=== PATIENT | male | born 1960 | race Caucasian/White ===

== ENCOUNTER 2017-12-12 01:44 | Emergency (ER) | payer OTHER ==
[2017-12-12 02:28] LABS: Bilirubin Negative (Negative); Blood, Urine Negative (Negative); Clarity Clear (Clear); Glucose, Urine (Dipstick) Negative (Negative); Leukocyte Negative (Negative); Nitrite Negative (Negative); Protein, Urine (Dipstick) Negative (Neg-Trace); Specific Gravity, Urine 1.015 (1.005-1.030); Urobilinogen 0.2 mg/dL (0.2-1.0)
[2017-12-12 02:32] LABS: Troponin I Less than 0.010 ng/mL (< 0.028)
[2017-12-12 02:33] LABS: Band 1 % (5-11); Eosinophils 1 % (0-10); Hemoglobin 17.3 g/dL (14.0-18.0); Lymphocytes 29 % (21-51); MDiff Complete? YES; Mean Corpuscular HGB CONC 33.8 g/dL (32.0-36.0); Mean Corpuscular Hemoglobin 27.6 pg (27.0-31.0); Mean Corpuscular Volume 81.8 fL (78.0-98.0); Mean Platelet Volume 9.1 fL (7.4-10.4); Monocytes 1 % (0-10); Neutrophil 63 % (42-75); Platelet Count 284 thou/uL (130-400); RBC Distribution Width 12.3 % (11.5-14.5); Reactive Lymphocytes 5 % (0-10); Red Blood Cell (RBC) Count 6.27 mill/uL (4.70-6.10); White Blood Cell (WBC) Count 10.3 thou/uL (4.8-10.8)
[2017-12-12 02:48] LABS: ALT (SGPT) 24 U/L (8-55); AST (SGOT) 22 U/L (5-34); Albumin 4.3 g/dL (3.5-5.0); Alkaline Phosphatase 88 U/L (40-150); Anion Gap 14 mmol/L (10-20); BUN (Urea Nitrogen) 18 mg/dL (8.4-25.7); Bilirubin, Total 0.4 mg/dL (0.2-1.2); Calc. Creatinine Clearance 0 mL/min (70-130); Calcium 9.8 mg/dL (7.8-10.44); Carbon Dioxide 24 mmol/L (22-29); Chloride 107 mmol/L (98-107); Estimated GFR-MDRD 74; Globulin 3.4 g/dL (2.4-3.5); Glucose 117 mg/dL (70-105); Potassium 3.5 mmol/L (3.5-5.1); Protein, Total 7.7 g/dL (6.0-8.3); Sodium 141 mmol/L (136-145)
[2017-12-12 02:50] LABS: Magnesium 2.4 mg/dL (1.6-2.6)
[2017-12-12] MEDS ORDERED: Metoprolol Tartrate 5 MG/5 ML VIAL ONE (03:13)
--- NOTE | 2017-12-12 08:36 | RAD ---
CHEST TWO VIEWS: HISTORY: New onset palpitation. COMPARISON: None. FINDINGS: Slight elongation of the aorta. Normal cardiac silhouette. Pulmonary vessels and hilum are normal. Costophrenic angles are clear. No masses or consolidation. No pneumothorax or osseous abnormalitie s. IMPRESSION: No acute cardiopulmonary process. POS: [facility]
== END 2017-12-12 04:53 | disposition short-term general hospital (02) ==
LOC: SCSER 01:44
DX: I48.91 Unspecified atrial fibrillation (principal); I10 Essential (primary) hypertension; Z79.899 Other long term (current) drug therapy
CPT/HCPCS: 71046; 80053; 81003; 83735; 83880; 84443; 84484; 85025; 93005; 96361; 96374

== ENCOUNTER 2018-12-26 12:05 | Outpatient (CLI) | payer OTHER ==
--- NOTE | 2018-12-26 14:30 | CT ---
EXAM: Abdomen and pelvic CT scan with contrast: HISTORY: Left upper and lower abdominal pain, patient complains of left upper quadrant abdominal mass COMPARISON: None FINDINGS: The visualized lung bases are clear. Small hiatal hernia. Liver: Multiple low-attenuation foci within the right and left lobes the liver up to 1.9 cm which hav e relatively low attenuation coefficients but are nonspecific on this single phase study. Gallbladder:Small gallstone/stones without wall thickening or pericholecystic fat stranding. Pancreas:Unremarkable Spleen:Unremarkable. Adrenal glands:1.1 cm diameter fatty right adrenal mass probably a myolipoma. Kidneys:No renal calculus or acute obstruction. Multiple bilateral renal cysts including a minimally septated cyst of the right kidney up to 4.8 cm. Solid enhancing mass involving the lower pole of the left kidney, 3.3 x 3.4 x 4.4 cm in size evidence for primary renal malignancy. Visualized left renal vein is intact. Scattered colonic diverticulosis without acute diverticulitis. Minimal focal thickening of the sigmoid colon, nonspecific, possibly related to prior diverticulitis although a small neoplastic process is not excluded. No CT evidence for acute appendicitis. The urinary bladder is unremarkable. Reproductive system:Enlarged prostate gland. Bilateral fat-containing inguinal hernias. No abscess, adenopathy, or abnormal fluid collection within the abdomen or pelvis. IMPRESSION: Solid enhancing left lower pole renal mass evidence for malignancy. Lower attenuation nodular foci within the liver, nonspecific possibly cysts. Bilateral renal cysts. Cholelithiasis without acute cholecystitis. Other findings as above. CODE T
[2018-12-26] MEDS ORDERED: Iopamidol 370 76% 100 ML VIAL ONE (20:39)
[2018-12-26] MEDS ORDERED: Iopamidol 370 76% 50 ML VIAL FS ONE (20:39)
== END 2018-12-26 12:06 | disposition home or self-care (01) ==
LOC: CT 12:05
PROVIDERS: ATTEND Physician Assistant
DX: R19.02 Left upper quadrant abdominal swelling, mass and lump (principal); R19.04 Left lower quadrant abdominal swelling, mass and lump; N28.89 Other specified disorders of kidney and ureter; N28.1 Cyst of kidney, acquired; K80.20 Calculus of gallbladder without cholecystitis without obstruction; K40.90 Unilateral inguinal hernia, without obstruction or gangrene, not specified as recurrent; N40.0 Benign prostatic hyperplasia without lower urinary tract symptoms; K57.30 Diverticulosis of large intestine without perforation or abscess without bleeding
CPT/HCPCS: 74177; Q9967

== ENCOUNTER 2019-01-18 09:00 | Inpatient (IN) | payer OTHER ==
[2019-01-29] MEDS ORDERED: Midazolam HCl 2 mg/2 ml Vial ONE (07:01)
[2019-01-29] MEDS ORDERED: Fentanyl 100 MCG/2 ML VIAL ONE ×3 (07:01→09:59)
[2019-01-29] MEDS ORDERED: Acetaminophen 500 MG TAB PO PRN (07:11)
[2019-01-29] MEDS ORDERED: traMADol HCl 50 MG TAB PO PRN ×2 (07:15)
[2019-01-29] MEDS ORDERED: Bupivacaine 0.25% 10 ML VIAL EPIDURAL PRN ×2 (07:15→10:00)
[2019-01-29] MEDS ORDERED: diphenhydrAMINE 25 MG CAP PO PRN ×2 (07:15→10:00)
[2019-01-29] MEDS ORDERED: Promethazine HCl 25 MG SUPP PR PRN ×2 (07:15→10:00)
[2019-01-29] MEDS ORDERED: diphenhydrAMINE 50 MG/ML VIAL IVP PRN ×2 (07:15→10:00)
[2019-01-29] MEDS ORDERED: Promethazine HCl 25 MG/ML VIAL IM PRN ×3 (07:15→10:00)
[2019-01-29] MEDS ORDERED: Zolpidem Tartrate 5 MG TAB PO PRN ×2 (07:15→10:00)
[2019-01-29] MEDS ORDERED: diphenhydrAMINE 50 MG/ML VIAL IM PRN ×2 (07:15→10:00)
[2019-01-29] MEDS ORDERED: Naloxone HCl 0.4 mg/ml Vial IVP PRN ×3 (07:15→10:00)
[2019-01-29] MEDS ORDERED: Ondansetron PF 4 MG/2 ML Vial IVP PRN ×2 (07:15→10:00)
[2019-01-29] MEDS ORDERED: Naloxone HCl 0.4 mg/ml Vial IV PRN (07:15)
[2019-01-29] MEDS ORDERED: Hydrocerin (Eucerin) Cream 120 gm Jar TOP PRN (07:15)
[2019-01-29] MEDS ORDERED: HYDROcodone/Acetaminophen 5/325 mg Tablet PO PRN (07:15)
[2019-01-29] MEDS ORDERED: Bupivacaine 0.25% HCL 30 ML VIAL ONE (07:59)
[2019-01-29] MEDS ORDERED: Promethazine HCl 25 MG/ML VIAL SLOW IVP PRN (10:00)
[2019-01-29] MEDS ORDERED: Ondansetron HCl/PF 4 MG/2 ML Vial IVP PRN (10:00)
[2019-01-29] MEDS ORDERED: Fentanyl 5 mcg/Bupivacaine 0.075% Cassette 100 ML EPIDURAL SCH (10:00)
[2019-01-29] MEDS ORDERED: Communication Order-Pharmacy FS SCH ×2 (10:00)
[2019-01-29 11:20] LABS: Hemoglobin 13.6 g/dL (14.0-18.0)
[2019-01-29 11:53] LABS: Anion Gap 11 mmol/L (10-20); BUN (Urea Nitrogen) 19 mg/dL (8.4-25.7); Calc. Creatinine Clearance 120 mL/min (70-130); Carbon Dioxide 23 mmol/L (22-29); Chloride 106 mmol/L (98-107); Estimated GFR-MDRD 58; Glucose 141 mg/dL (70-105); Potassium 3.2 mmol/L (3.5-5.1); Sodium 137 mmol/L (136-145)
[2019-01-29] MEDS ORDERED: Rocuronium Bromide 10 MG/ML (10ML VIAL) ONE (12:09)
[2019-01-29] MEDS ORDERED: ePHEDrine/0.9% NaCl/PF SYRINGE 50 mg/10 ml ONE (12:09)
[2019-01-29] MEDS ORDERED: PROPOFOL 200 MG/20 ML VIAL ONE (12:09)
[2019-01-29] MEDS ORDERED: Lidocaine 1.5% w/Epi 1:200K 30 ML VIAL (Epid Use) ONE (12:09)
[2019-01-29] MEDS ORDERED: Dexamethasone 20 MG/5 ML VIAL ONE (12:09)
[2019-01-29] MEDS ORDERED: Glycopyrrolate 0.2 MG/ML 5 ML SYRINGE ONE (12:09)
[2019-01-29] MEDS ORDERED: PHENYLEPHRINE-NS 100 MCG/ML 10 ML SYRINGE ONE (12:09)
[2019-01-29] MEDS ORDERED: Vecuronium 10 MG VIAL ONE (12:09)
[2019-01-29] MEDS ORDERED: Ondansetron PF 4 MG/2 ML Vial ONE (12:09)
--- NOTE | 2019-01-29 12:19 | OP ---
DATE OF PROCEDURE: 01/29/2019 PREOPERATIVE DIAGNOSIS: Left renal mass. POSTOPERATIVE DIAGNOSIS: Left renal mass. PROCEDURE PERFORMED: Open partial left nephrectomy. ANESTHESIA: General, epidural. ESTIMATED BLOOD LOSS: 100 mL. COMPLICATIONS: None. SPECIMEN: Left renal mass. DESCRIPTION OF PROCEDURE: After informed consent, the patient was taken to the operating room and transferred to the table. Anesthesia was established. A time-out was performed, which showing the correct patient, site, and procedure. Preoperative antibiotics were administered. He was prepped and draped in the supine position with the bed flexed. I infiltrated the proposed anterior subcostal incision site with 0.25% Marcaine. An incision was then made with a 10 blade and carried down to fascia with electrocautery. The fascia was carefully opened and the abdomen entered. The bowel was retracted medially and a Bookwalter deployed. Unable to deflect the colon by taking down the line of Toldt on the left side, exposing the renal hilum. The vein and artery were isolated separately and vessel loops passed around each. I then freed the perinephric fat from around the tumor site. I marked the edges of the tumor with electrocautery. I then clamped the artery 1st and then the vein and then used electrocautery to begin excising the tumor. I then switched to blunt dissection to peel the tumor away from the kidney. Finally, sharp dissection at the very base of the tumor. Once the tumor was excised, it was examined, noting no evidence indicating a positive margin. The bed of the renorrhaphy was then cauterized and run with 2-0 Vicryl suture. I then closed 2 larger vessels with the 2-0 Vicryl. Finally, the renorrhaphy was closed in an interrupted fashion with 0 Vicryl suture using Hem-o-marycarmen clips and a Surgicel bolster at the base. The artery and vein were then unclamped and no active bleeding was noted. The abdomen was irrigated and then the colon replaced overlying the kidney. The Bookwalter was taken down and the fascia was closed in 2 layers with 2-0 PDS suture. Dm was placed in the subcutaneous tissues and then skin was closed with gilda before being dressed with an island dressing. The patient was then transferred back to his hospital bed and taken to PACU in stable condition. Job ID: [id number]
[2019-01-29 14:14] LABS: Hemoglobin 14.7 g/dL (14.0-18.0)
[2019-01-29] MEDS: CEFAZOLIN 2 GM in Sodium Chloride 0.9% 100 ML IVPB SCH ×2 (14:38→23:07)
[2019-01-29] MEDS: Sodium Chloride 0.9% 1,000 ML IV SCH (14:38)
[2019-01-29] MEDS ORDERED: Potassium Chloride 40 MEQ in Sodium Chloride 0.9% 250 ML 250 ML IVPB SCH (14:45)
[2019-01-29 14:46] VITALS: BMI 36.1
[2019-01-29] MEDS ORDERED: EDARBYCLOR PO SCH (19:30)
[2019-01-29] MEDS ORDERED: EPLERENONE 25 MG PO SCH (19:30)
[2019-01-29] MEDS: Sotalol HCl 80 MG TAB PO SCH (20:08)
[2019-01-29] MEDS: Simvastatin 5 MG TAB PO SCH (20:08)
[2019-01-29] MEDS: Famotidine/PF 20 mg/2ml Vial SLOW IVP SCH (20:09)
[2019-01-29] MEDS: Fentanyl 5 mcg/Bup 0.075% Cadd 100 ML EPIDURAL SCH (20:09)
[2019-01-29] MEDS: HYDROcodone/Acetaminophen 5/325 mg Tablet PO PRN (22:39)
[2019-01-29] MEDS ORDERED: CEFAZOLIN 2 GM in Premix Bag 1 BAG IVPB SCH (22:45)
[2019-01-30] MEDS: HYDROcodone/Acetaminophen 5/325 mg Tablet PO PRN ×3 (03:03→19:42)
[2019-01-30] MEDS: Sodium Chloride 0.9% 1,000 ML IV SCH ×4 (03:06→22:03)
[2019-01-30 05:31] LABS: #Lymphocytes 1.2 thou/uL (1.20-3.40); #Monocytes 1.5 thou/uL (0.11-0.59); #Neutrophils 14.7 thou/uL (1.40-6.50); %Basophils 0.1 % (0.0-1.0); %Eosinophils 0.1 % (0.0-10.0); %Lymphocytes 7.1 % (21.0-51.0); %Monocytes 8.4 % (0.0-10.0); %Neutrophils 84.4 % (42.0-75.0); Hemoglobin 14.1 g/dL (14.0-18.0); Mean Corpuscular HGB CONC 33.6 g/dL (32.0-36.0); Mean Corpuscular Hemoglobin 29.1 pg (27.0-31.0); Mean Corpuscular Volume 86.5 fL (78.0-98.0); Mean Platelet Volume 8.8 fL (7.4-10.4); Platelet Count 220 thou/uL (130-400); RBC Distribution Width 13.6 % (11.5-14.5); Red Blood Cell (RBC) Count 4.84 mill/uL (4.70-6.10); White Blood Cell (WBC) Count 17.5 thou/uL (4.8-10.8)
[2019-01-30] MEDS: CEFAZOLIN 2 GM in Premix Bag 1 BAG IVPB SCH ×2 (05:53→15:36)
[2019-01-30 05:54] LABS: Anion Gap 14 mmol/L (10-20); BUN (Urea Nitrogen) 18 mg/dL (8.4-25.7); Calc. Creatinine Clearance 110 mL/min (70-130); Calcium 7.9 mg/dL (7.8-10.44); Carbon Dioxide 21 mmol/L (22-29); Chloride 105 mmol/L (98-107); Estimated GFR-MDRD 51; Glucose 124 mg/dL (70-105); Potassium 3.2 mmol/L (3.5-5.1); Sodium 137 mmol/L (136-145)
[2019-01-30] MEDS: EDARBYCLOR PO SCH ×2 (08:13→21:05)
[2019-01-30] MEDS: Famotidine/PF 20 mg/2ml Vial SLOW IVP SCH ×2 (08:14→21:06)
[2019-01-30] MEDS: Sotalol HCl 80 MG TAB PO SCH ×2 (08:14→21:06)
[2019-01-30] MEDS ORDERED: EPLERENONE 25 MG PO SCH ×2 (09:00)
[2019-01-30] MEDS ORDERED: Enoxaparin Sodium 40 MG/0.4 ML SYRINGE SC SCH (10:30)
[2019-01-30] MEDS ORDERED: Potassium Chloride 40 MEQ in Sodium Chloride 0.9% 250 ML 250 ML IVPB SCH (15:30)
[2019-01-30] MEDS ORDERED: Furosemide 40 MG/4 ML VIAL SLOW IVP SCH (17:30)
[2019-01-30] MEDS: Simvastatin 5 MG TAB PO SCH (21:06)
[2019-01-30] MEDS: Fentanyl 5 mcg/Bup 0.075% Cadd 100 ML EPIDURAL SCH (22:04)
[2019-01-31] MEDS: HYDROcodone/Acetaminophen 5/325 mg Tablet PO PRN ×6 (01:05→21:08)
[2019-01-31 04:53] LABS: #Eosinphils 0.1 thou/uL (0.0-0.7); #Lymphocytes 1.8 thou/uL (1.20-3.40); #Monocytes 1.4 thou/uL (0.11-0.59); #Neutrophils 9.7 thou/uL (1.40-6.50); %Basophils 0.2 % (0.0-1.0); %Eosinophils 0.6 % (0.0-10.0); %Monocytes 10.5 % (0.0-10.0); %Neutrophils 74.8 % (42.0-75.0); Hemoglobin 13.2 g/dL (14.0-18.0); Mean Corpuscular HGB CONC 32.9 g/dL (32.0-36.0); Mean Corpuscular Hemoglobin 28.5 pg (27.0-31.0); Mean Corpuscular Volume 86.5 fL (78.0-98.0); Mean Platelet Volume 8.3 fL (7.4-10.4); Platelet Count 188 thou/uL (130-400); RBC Distribution Width 13.5 % (11.5-14.5); Red Blood Cell (RBC) Count 4.65 mill/uL (4.70-6.10)
[2019-01-31 05:15] LABS: Anion Gap 11 mmol/L (10-20); BUN (Urea Nitrogen) 16 mg/dL (8.4-25.7); Calc. Creatinine Clearance 112 mL/min (70-130); Carbon Dioxide 26 mmol/L (22-29); Chloride 102 mmol/L (98-107); Estimated GFR-MDRD 52; Glucose 107 mg/dL (70-105); Sodium 136 mmol/L (136-145)
[2019-01-31] MEDS ORDERED: Furosemide 40 MG/4 ML VIAL SLOW IVP SCH (06:15)
--- NOTE | 2019-01-31 06:29 | PRG ---
DATE OF SERVICE: 01/30/2019 SUBJECTIVE: No issues overnight. Pain well controlled with epidural. The patient denies fevers, or chills, nausea, vomiting, shortness of breath, chest pains. OBJECTIVE: VITAL SIGNS: Afebrile, vitals stable. GENERAL: No acute distress. ABDOMEN: Soft, appropriately tender over incision, nondistended. Dressing intact. SKIN: Warm and dry. EXTREMITIES: SCDs in place, no peripheral edema. LABORATORY DATA: White count 17, hemoglobin 14, and creatinine 1.41. ASSESSMENT AND PLAN: Postop day one, left partial nephrectomy. Continue routine postop care-pain control with epidural. This will likely be removed tomorrow, continue Wolfe catheter while epidural was in, starting Lovenox tonight, SCDs, incentive spirometry, up to chair, and ambulate if possible today. Discharge anticipated for February 01. Job ID: [id number]
[2019-01-31] MEDS: EDARBYCLOR PO SCH ×2 (08:50→21:11)
[2019-01-31] MEDS: Sotalol HCl 80 MG TAB PO SCH ×2 (08:51→21:07)
[2019-01-31] MEDS: Famotidine/PF 20 mg/2ml Vial SLOW IVP SCH ×2 (08:52→21:10)
[2019-01-31] MEDS: Sodium Chloride 0.9% 1,000 ML IV SCH (09:06)
[2019-01-31] MEDS: Potassium Chloride 40 MEQ in Sodium Chloride 0.45% 1,000 ML IV SCH ×3 (09:30→20:12)
--- NOTE | 2019-01-31 11:04 | PRG ---
DATE OF SERVICE: 01/31/2019 SUBJECTIVE: No issues overnight. Very minimal discomfort. He denies shortness of breath, chest pain, headache, nausea, vomiting, fever, or chills. OBJECTIVE: VITAL SIGNS: Afebrile, vitals stable. GENERAL: No acute distress. Urine output 2500. LUNGS: Unlabored breathing. ABDOMEN: Soft, appropriately tender over the incision with dressing intact and clean. EXTREMITIES: No peripheral edema. SKIN: Warm and dry. LABORATORY DATA: White count 13, hemoglobin 13.2. Creatinine 1.39. ASSESSMENT AND PLAN: Postoperative day 2, left partial nephrectomy. Continue routine postoperative care-epidural and catheter out this morning. Continue regular diet. SCDs. Incentive spirometry. Up to chair and ambulate. Discharge anticipated for tomorrow morning. Job ID: [id number]
[2019-01-31] MEDS: Aspirin 81 mg Enteric Coated Tablet PO SCH ×3 (16:12→16:23)
[2019-01-31] MEDS ORDERED: Enoxaparin Sodium 40 MG/0.4 ML SYRINGE SC SCH (21:00)
[2019-01-31] MEDS: Simvastatin 5 MG TAB PO SCH (21:07)
[2019-02-01] MEDS: HYDROcodone/Acetaminophen 5/325 mg Tablet PO PRN ×3 (01:16→10:20)
[2019-02-01] MEDS: Potassium Chloride 40 MEQ in Sodium Chloride 0.45% 1,000 ML IV SCH (05:16)
[2019-02-01 06:05] LABS: #Eosinphils 0.1 thou/uL (0.0-0.7); #Lymphocytes 1.7 thou/uL (1.20-3.40); #Neutrophils 7.1 thou/uL (1.40-6.50); %Basophils 0.4 % (0.0-1.0); %Lymphocytes 17.5 % (21.0-51.0); %Monocytes 10.1 % (0.0-10.0); %Neutrophils 70.9 % (42.0-75.0); Hemoglobin 12.7 g/dL (14.0-18.0); Mean Corpuscular HGB CONC 33.3 g/dL (32.0-36.0); Mean Corpuscular Volume 87.3 fL (78.0-98.0); Mean Platelet Volume 8.7 fL (7.4-10.4); Platelet Count 193 thou/uL (130-400); RBC Distribution Width 13.4 % (11.5-14.5); Red Blood Cell (RBC) Count 4.37 mill/uL (4.70-6.10)
[2019-02-01 06:21] LABS: Anion Gap 9 mmol/L (10-20); BUN (Urea Nitrogen) 15 mg/dL (8.4-25.7); Calc. Creatinine Clearance 116 mL/min (70-130); Calcium 8.4 mg/dL (7.8-10.44); Carbon Dioxide 31 mmol/L (22-29); Chloride 98 mmol/L (98-107); Estimated GFR-MDRD 55; Glucose 104 mg/dL (70-105); Potassium 3.3 mmol/L (3.5-5.1); Sodium 135 mmol/L (136-145)
[2019-02-01 08:23] VITALS: BP 113/73; TEMP 97.8
[2019-02-01] MEDS: EDARBYCLOR PO SCH (09:25)
[2019-02-01] MEDS: Sotalol HCl 80 MG TAB PO SCH (09:26)
[2019-02-01] MEDS: Famotidine/PF 20 mg/2ml Vial SLOW IVP SCH (09:27)
--- NOTE | 2019-02-01 14:46 | DIS ---
DATE OF ADMISSION: 01/29/2019 DATE OF DISCHARGE: 02/01/2019 CHIEF COMPLAINT: Renal mass. FINAL DIAGNOSIS: Left clear cell renal cell carcinoma. OTHER DIAGNOSES: 1. Hypertension. 2. Atrial fibrillation. PROCEDURE PERFORMED: Open partial left nephrectomy on January 29. HOSPITAL COURSE: The patient underwent an uncomplicated open partial left nephrectomy. There were no surgical complications. He was managed afterwards with an epidural for 2 days and then transitioned to IV and oral medications. By postop day 3, he was ambulating on his own, tolerating oral intake, and having minimal pain. He was deemed stable for discharge home at that point. DISCHARGE PHYSICAL EXAMINATION: GENERAL: No acute distress. LUNGS: Unlabored breathing. Symmetric chest expansion. HEART: Regular rate and rhythm. ABDOMEN: Soft, nondistended. Minimal tenderness over incision. SKIN: Warm and dry. NEUROLOGIC: Alert and oriented x3. LABORATORY VALUES: On date of discharge, white count 10, hemoglobin 12.7. Creatinine 1.34. CONDITION AT DISCHARGE: Stable. DISCHARGE MEDICATIONS: He will resume all home medications except for hydralazine. He is also going to start on Hadley and docusate as postop medications for the next week. PLAN: Follow up in 10 to 14 days for staple removal. Job ID: [id number]
[2019-02-01] MEDS ORDERED: Aspirin 81 mg Enteric Coated Tablet PO SCH (16:15)
[2019-02-02] MEDS ORDERED: Aspirin 81 mg Enteric Coated Tablet PO SCH (09:00)
--- NOTE | 2019-02-07 03:12 | PQF ---
[employer] Crystal Reports Winform ViewerDASID GIBSON STEVE JOSEFA [id number] SURG [id number] CLINICAL DOCUMENTATION CLARIFICATION FORM: POST DISCHARGE Addendum to original discharge summary date: 02/07/19 Late entry note date: 02/07/19 DATE: 02/07/2019 ATTN: JOSEFA WILSON Please exercise your independent, professional judgment in responding to the clarification form. Clinical indicators are provided on the bottom of this form for your review Please check appropriate box(s): [ ] Paroxysmal Atrial Fibrillation [ ] Persistent Atrial Fibrillation [ ] Chronic Atrial Fibrillation (includes permanent Atrial Fibrillation) [ x ] Atrial fib/Atrial flutter [ ] Atrial Flutter [ ] Post-Operative Complication - Atrial Fibrillation [ ] Paroxysmal Atrial Fibrillation [ ] Persistent Atrial Fibrillation [ ] Other diagnosis [ ] Unable to determine In addition, please specify: Present on Admission (POA): [ x] Yes [ ] No [ ] Unable to determine For continuity of documentation, please document condition throughout progress notes and discharge summary. Thank You. CLINICAL INDICATORS - SIGNS / SYMPTOMS / LABS Atrial Fibrillation - Documented in DS on 02/01 by JOSEFA WILSON family Hx of afib sister - Documented in H&P RISKS FACTORS Left clear cell renal cell carcinoma - JOSEFA WILSON HTN - JOSEFA WILSON Hx of AFIB - Documented in H&P TREATMENTS: Sotalol HCL 80 mg Tablet 1 tab BID - Documented in Medication report [employer] Crystal Reports Winform Viewer(This form is maintained as a part of the permanent medical record) 2014 [employer]. All Rights Reserved [email or web address] [not provided] MTDD
== END 2019-02-01 10:30 | disposition home or self-care (01) | DRG 658 ==
LOC: SURG A 01-29 05:42 → EDSTATUS 01-29 10:41 → SURG B 01-29 11:28
PROVIDERS: ADMIT Urology; ATTEND Urology
PROC: 0TB10ZZ Excision of Left Kidney, Open Approach (ICD-10-PCS; principal; 2019-01-29)
DX: C64.2 Malignant neoplasm of left kidney, except renal pelvis (principal); I10 Essential (primary) hypertension; I48.91 Unspecified atrial fibrillation; M10.9 Gout, unspecified; Z79.82 Long term (current) use of aspirin; Z79.01 Long term (current) use of anticoagulants; E66.3 Overweight; Z68.37 Body mass index [BMI] 37.0-37.9, adult
CPT/HCPCS: 36415; 80048; 85014; 85018; 85025; 86850; 86900; 86901; 88307; J0690; J1100; J1642; J1650; J1940; J2001; J2250; J2405; J2704; J3010; J3480; J3490; J7050; S0020; S0028

== ENCOUNTER 2019-01-23 09:11 | Outpatient (CLI) | payer OTHER ==
--- NOTE | 2019-01-23 12:19 | RAD ---
CHEST 2 VIEWS: Date: 01/23/19 HISTORY: Preop. COMPARISON: 12/12/17. FINDINGS: Cardiac silhouette and pulmonary vasculature are unremarkable. Mediastinum is midline. No confluent a ir space consolidation, pneumothorax, or pleural fluid. Degenerative changes of thoracic spine. IMPRESSION: No active cardiopulmonary abnormalities are demonstrated. POS: [facility]
[2019-01-23 12:24] LABS: Hemoglobin 15.7 g/dL (14.0-18.0); Mean Corpuscular HGB CONC 34.1 g/dL (32.0-36.0); Mean Corpuscular Hemoglobin 29.3 pg (27.0-31.0); Mean Corpuscular Volume 86.1 fL (78.0-98.0); Mean Platelet Volume 8.8 fL (7.4-10.4); Platelet Count 237 thou/uL (130-400); RBC Distribution Width 13.3 % (11.5-14.5); Red Blood Cell (RBC) Count 5.34 mill/uL (4.70-6.10); White Blood Cell (WBC) Count 10.8 thou/uL (4.8-10.8)
[2019-01-23 12:40] LABS: ALT (SGPT) 15 U/L (8-55); AST (SGOT) 16 U/L (5-34); Albumin 4.4 g/dL (3.5-5.0); Alkaline Phosphatase 75 U/L (40-110); Anion Gap 13 mmol/L (10-20); BUN (Urea Nitrogen) 20 mg/dL (8.4-25.7); Bilirubin, Total 0.9 mg/dL (0.2-1.2); Calc. Creatinine Clearance 0 mL/min (70-130); Calcium 9.8 mg/dL (7.8-10.44); Carbon Dioxide 26 mmol/L (22-29); Chloride 101 mmol/L (98-107); Estimated GFR-MDRD 53; Globulin 3.1 g/dL (2.4-3.5); Glucose 93 mg/dL (70-105); Potassium 3.2 mmol/L (3.5-5.1); Protein, Total 7.5 g/dL (6.0-8.3); Sodium 137 mmol/L (136-145)
--- NOTE | 2019-01-23 17:00 | EKG ---
Test Reason : Blood Pressure : / mmHG Vent. Rate : 067 BPM Atrial Rate : 067 BPM P-R Int : 198 ms QRS Dur : 092 ms QT Int : 434 ms P-R-T Axes : 064 052 045 degrees QTc Int : 458 ms Normal sinus rhythm Cannot rule out Anterior infarct , age undetermined Abnormal ECG Confirmed by RABIA CAMPOS ([id number]) on 01/23/2019 5:00:17 PM Referred By: STEVE Confirmed By:RABIA CAMPOS
== END 2019-01-23 09:12 | disposition home or self-care (01) ==
LOC: LABBT 09:11
PROVIDERS: ATTEND Urology
DX: Z01.818 Encounter for other preprocedural examination (principal); N28.89 Other specified disorders of kidney and ureter
CPT/HCPCS: 71046; 80053; 85027; 93005; 93010

== ENCOUNTER 2019-08-29 07:37 | Outpatient (CLI) | payer OTHER ==
[2019-08-29] MEDS ORDERED: Iopamidol-370 76% 500 ML 1 ML ONE (10:05)
--- NOTE | 2019-08-29 10:26 | CT ---
CT ABDOMEN WITH AND WITHOUT IV CONTRAST: Date: 08/29/2019 HISTORY: Clear cell carcinoma of the left kidney with partial left nephrectomy in January 2019. COMPARISON: 12/26/2018. FINDINGS: The lung bases are clear. The spleen, pancreas, and left adrenal gland are normal. Also add, A 1 cm m yolipoma in the right adrenal gland is stable. Cysts in the liver and kidneys are stable, including the approximately 5.0 cm septated cyst in the ri ght kidney. Changes of interval removal of the left inferior pole renal mass seen. No enhancing renal mass is identified. There is normal contrast excretion into the ureters. No free air, free fluid, or lymphadenopathy seen in the abdomen. There are vascular calcifications wi thout evidence of aneurysmal dilatation of the abdominal aorta. There are degenerative changes in the spine. The small bowel loops are not abnormally dilated. A normal appearing appendix is present. Cho lelithiasis is again seen. There is colonic diverticulosis. IMPRESSION: 1. Interval removal of left renal mass since 12/26/2018. 2. Stable hepatic and renal cysts. 3. Cholelithiasis. 4. Colonic diverticulosis. 5. Stable benign fatty lesion in the right adrenal gland. POS: [facility]
== END 2019-08-29 07:38 | disposition home or self-care (01) ==
LOC: BICCT 07:37
PROVIDERS: ATTEND Urology
DX: C64.2 Malignant neoplasm of left kidney, except renal pelvis (principal); N28.1 Cyst of kidney, acquired; K80.20 Calculus of gallbladder without cholecystitis without obstruction; K57.30 Diverticulosis of large intestine without perforation or abscess without bleeding; E27.8 Other specified disorders of adrenal gland; K76.89 Other specified diseases of liver
CPT/HCPCS: 74170

== ENCOUNTER 2021-03-29 07:35 | Outpatient (CLI) | payer OTHER ==
[2021-03-29] MEDS ORDERED: Iopamidol-370 76% 500 ML 1 ML ONE (11:53)
== END 2021-03-29 07:36 | disposition home or self-care (01) ==
LOC: BICCT 07:35
PROVIDERS: ATTEND Urology
DX: C64.2 Malignant neoplasm of left kidney, except renal pelvis (principal); R93.422 Abnormal radiologic findings on diagnostic imaging of left kidney
CPT/HCPCS: 71046; 74170; 82565; Q9967

== ENCOUNTER 2021-04-08 09:44 | Outpatient (CLI) | payer OTHER ==
[2021-04-08 19:17] LABS: SARS-CoV-2 PCR by NAA Not Detected (NotDetected)
== END 2021-04-08 09:45 | disposition home or self-care (01) ==
LOC: LABBT 09:44
PROVIDERS: ATTEND Urology
DX: Z01.812 Encounter for preprocedural laboratory examination (principal); C64.2 Malignant neoplasm of left kidney, except renal pelvis; Z20.822 Contact with and (suspected) exposure to COVID-19
CPT/HCPCS: U0003; U0005

== ENCOUNTER 2021-04-14 08:34 | Day surgery (SDC) | payer OTHER ==
[2021-04-12 14:40] VITALS: BMI 27.7
[2021-04-14 08:55] LABS: #Basophils 0.1 thou/uL (0.0-0.2); #Eosinphils 0.1 thou/uL (0.0-0.7); #Lymphocytes 2.1 thou/uL (1.20-3.40); #Neutrophils 8.4 thou/uL (1.40-6.50); %Basophils 0.8 % (0.0-1.0); %Eosinophils 1.3 % (0.0-10.0); %Lymphocytes 17.6 % (21.0-51.0); %Monocytes 8.3 % (0.0-10.0); %Neutrophils 72.1 % (42.0-75.0); Hemoglobin 14.6 g/dL (14.0-18.0); Mean Corpuscular HGB CONC 32.4 g/dL (32.0-36.0); Mean Corpuscular Hemoglobin 28.1 pg (27.0-31.0); Mean Corpuscular Volume 86.7 fL (78.0-98.0); Mean Platelet Volume 7.3 fL (7.4-10.4); Platelet Count 314 thou/uL (130-400); RBC Distribution Width 13.4 % (11.5-14.5); Red Blood Cell (RBC) Count 5.19 mill/uL (4.70-6.10); White Blood Cell (WBC) Count 11.6 thou/uL (4.8-10.8)
[2021-04-14 09:14] LABS: INR-International Normal Ratio 1.2; Prothrombin Time 15.6 sec (12.0-14.7)
[2021-04-14 09:15] LABS: PTT 50.8 sec (22.9-36.1)
[2021-04-14 11:33] VITALS: BP 117/74; TEMP 97.6
== END 2021-04-14 14:10 | disposition home or self-care (01) ==
LOC: CT 08:34
PROVIDERS: ATTEND Urology
PROC: 0TB13ZX Excision of Left Kidney, Percutaneous Approach, Diagnostic (ICD-10-PCS; principal; 2021-04-14)
DX: C64.2 Malignant neoplasm of left kidney, except renal pelvis (principal); I10 Essential (primary) hypertension; I48.91 Unspecified atrial fibrillation; M10.9 Gout, unspecified; E66.9 Obesity, unspecified; Z68.27 Body mass index [BMI] 27.0-27.9, adult; Z87.891 Personal history of nicotine dependence; Z79.01 Long term (current) use of anticoagulants; Z79.899 Other long term (current) drug therapy; Z90.5 Acquired absence of kidney
CPT/HCPCS: 36415; 49180; 77012; 85025; 85610; 85730; 88305; 88333; 88341; 88342

== ENCOUNTER 2023-10-17 17:09 | Inpatient (IN) | payer OTHER ==
[2023-10-17] MEDS: NOREPINEPHRINE 8 MG/250 ML-D5W 250 ML IVPB SCH (18:41)
[2023-10-17 19:49] VITALS: BMI 37.9
[2023-10-17] MEDS: Lactated Ringer's 1,000 ML IV SCH ×2 (20:13)
[2023-10-17] MEDS: Hydrocortisone Sod Succ/PF 100 mg/2 ml Vial IVP SCH (20:30)
[2023-10-17] MEDS: Albumin 25% 25 GM (100 mL) BOT IVPB SCH (20:30)
[2023-10-17] MEDS ORDERED: Acetaminophen 325 MG TAB PO PRN (20:40)
[2023-10-17] MEDS ORDERED: Ondansetron PF 4 MG/2 ML Vial IVP PRN (20:40)
[2023-10-17 21:07] LABS: Hematocrit 36.7 % (42.0-52.0); Hemoglobin 11.7 g/dL (14.0-18.0); Mean Corpuscular HGB CONC 31.9 g/dL (32.0-36.0); Mean Corpuscular Volume 87.8 fL (78.0-98.0); Mean Platelet Volume 10.7 fL (7.4-10.4); Platelet Count 111 10x3/uL (130-400); RBC Distribution Width 17.2 % (11.5-14.5); Red Blood Cell (RBC) Count 4.18 mill/uL (4.70-6.10)
[2023-10-17 21:18] LABS: ALT (SGPT) 35 U/L (8-55); AST (SGOT) 25 U/L (5-34); Albumin 2.3 g/dL (3.4-4.8); Alkaline Phosphatase 66 U/L (40-110); Anion Gap 14 mmol/L (10-20); BUN (Urea Nitrogen) 14 mg/dL (8.4-25.7); Calc. Creatinine Clearance 96 mL/min (70-130); Calcium 7.8 mg/dL (7.8-10.44); Carbon Dioxide 20 mmol/L (23-31); Chloride 104 mmol/L (98-107); Estimated GFR 48; Globulin 2.7 g/dL (2.4-3.5); Glucose 155 mg/dL (80-115); Magnesium 1.5 mg/dL (1.6-2.6); Potassium 3.1 mmol/L (3.5-5.1); Sodium 135 mmol/L (136-145)
[2023-10-17 21:31] LABS: Band 29 % (5-11); Lymphocytes 3 % (21-51); Metamyelocyte 2 % (0-0); Monocytes 2 % (0-10); Myelocyte 4 % (0-0); Neutrophil 58 % (42-75); Platelet Adequacy Comment Platelets Decreased; Polychromasia SLIGHT = 2-3 cells HPF (0-2)
[2023-10-17] MEDS: Apixaban 5 MG TAB PO SCH (21:38)
[2023-10-17] MEDS: Magnesium 2 GM/50 ML(in water) 2 GM in Premix 1 BAG IVPB SCH (21:46)
[2023-10-17] MEDS: Potassium Chloride 20 MEQ in Premix 1 BAG IVPB SCH (21:46)
[2023-10-18 04:49] LABS: #Basophils 0.04 10x3/uL (0.0-0.2); #Eosinphils Less than 0.03 10x3/uL (0.0-0.7); %Basophils 0.5 % (0.0-1.0); %Lymphocytes 8.8 % (21.0-51.0); %Monocytes 3.6 % (0.0-10.0); %Neutrophils 83.1 % (42.0-75.0); Hematocrit 31.6 % (42.0-52.0); Hemoglobin 10.5 g/dL (14.0-18.0); Mean Corpuscular HGB CONC 33.2 g/dL (32.0-36.0); Mean Corpuscular Hemoglobin 27.2 pg (27.0-31.0); Mean Corpuscular Volume 81.9 fL (78.0-98.0); Mean Platelet Volume 10.3 fL (7.4-10.4); Platelet Count 130 10x3/uL (130-400); RBC Distribution Width 17.1 % (11.5-14.5); Red Blood Cell (RBC) Count 3.86 mill/uL (4.70-6.10)
[2023-10-18 05:07] LABS: ALT (SGPT) 31 U/L (8-55); AST (SGOT) 20 U/L (5-34); Albumin 2.9 g/dL (3.4-4.8); Alkaline Phosphatase 57 U/L (40-110); Anion Gap 12 mmol/L (10-20); BUN (Urea Nitrogen) 14 mg/dL (8.4-25.7); Bilirubin, Total 0.9 mg/dL (0.2-1.2); Calc. Creatinine Clearance 96 mL/min (70-130); Carbon Dioxide 24 mmol/L (23-31); Chloride 105 mmol/L (98-107); Estimated GFR 48; Globulin 2.2 g/dL (2.4-3.5); Glucose 157 mg/dL (80-115); Lipase 36 U/L (8-78); Phosphorus 2.3 mg/dL (2.3-4.7); Potassium 3.2 mmol/L (3.5-5.1); Protein, Total 5.1 g/dL (5.8-8.1); Sodium 138 mmol/L (136-145)
[2023-10-18] MEDS: Potassium Chloride 40 MEQ in Premix 1 BAG IVPB SCH (07:57)
[2023-10-18] MEDS: Pantoprazole DR 40 MG TAB PO SCH (08:01)
[2023-10-18] MEDS: Lactated Ringer's 1,000 ML IV SCH (08:30)
[2023-10-18] MEDS ORDERED: Electrolyte Replacement Protocol FS PRN (08:45)
[2023-10-18] MEDS ORDERED: Pantoprazole 40 MG VIAL IVP SCH (09:00)
[2023-10-18] MEDS: Magnesium 2 GM/50 ML(in water) 2 GM in Premix 1 BAG IVPB SCH (12:41)
[2023-10-18] MEDS: Sotalol HCl 80 MG TAB PO SCH (14:38)
[2023-10-18] MEDS: Potassium Chloride 20 MEQ in Premix 1 BAG IVPB SCH (19:54)
[2023-10-19 06:38] LABS: Anion Gap 10 mmol/L (10-20); BUN (Urea Nitrogen) 12 mg/dL (8.4-25.7); Calc. Creatinine Clearance 106 mL/min (70-130); Calcium 8.5 mg/dL (7.8-10.44); Carbon Dioxide 27 mmol/L (23-31); Chloride 107 mmol/L (98-107); Estimated GFR 53; Glucose 95 mg/dL (80-115); Potassium 2.9 mmol/L (3.5-5.1); Sodium 141 mmol/L (136-145)
[2023-10-19 07:48] VITALS: TEMP 99.2
[2023-10-19] MEDS: Sotalol HCl 80 MG TAB PO SCH (08:33)
[2023-10-19] MEDS: Potassium Chloride 20 MEQ TAB PO SCH (08:33)
[2023-10-19] MEDS: Magnesium 2 GM/50 ML(in water) 2 GM in Premix 1 BAG IVPB SCH (08:37)
[2023-10-19] MEDS: Hydrocortisone Sod Succ/PF 100 mg/2 ml Vial IVP SCH (08:37)
[2023-10-19 11:49] VITALS: BP 136/87
[2023-10-19] MEDS: Hydrocortisone 10 mg Tablet PO SCH (12:06)
== END 2023-10-19 12:37 | disposition home or self-care (01) | DRG 687 ==
LOC: CCU 18:31 → T4-A 10-18 11:25
PROVIDERS: ADMIT Internal Medicine; ATTEND Internal Medicine
DX: C64.9 Malignant neoplasm of unspecified kidney, except renal pelvis (principal); C78.00 Secondary malignant neoplasm of unspecified lung; N17.9 Acute kidney failure, unspecified; E27.40 Unspecified adrenocortical insufficiency; I95.9 Hypotension, unspecified; E87.6 Hypokalemia; I48.91 Unspecified atrial fibrillation; I10 Essential (primary) hypertension; Z79.01 Long term (current) use of anticoagulants; Z79.899 Other long term (current) drug therapy; Z87.891 Personal history of nicotine dependence; I48.0 Paroxysmal atrial fibrillation; D64.9 Anemia, unspecified; E86.1 Hypovolemia; E83.42 Hypomagnesemia; E88.09 Other disorders of plasma-protein metabolism, not elsewhere classified
CPT/HCPCS: 36415; 80048; 80053; 82533; 83690; 83735; 84100; 85025; 93005; 93010; J1720; J3475; J3480; J7120; P9047